=== PATIENT | male | born 1985 | race American Indian/Alaskan Native ===

== ENCOUNTER 2020-05-12 17:16 | Emergency (ER) | payer OTHER, BC ==
[2020-05-12 17:37] VITALS: BP 116/86
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
--- NOTE | 2020-05-12 18:49 | XRay Report ---
THORACOLUMBAR SPINE 2 VIEWS INDICATION / CLINICAL INFORMATION: pain. COMPARISON: None available. FINDINGS: [id number] is limited to the thoracolumbar junction. Upper thoracic and lower lumbar spi ne are not included. VERTEBRAE: No acute fracture. No significant malalignment. DISC SPACES / FACET JOINTS:No significant abnormality. PARASPINAL SOFT TISSUES:No significant abnormality. ADDITIONAL FINDINGS: None. Signer Name: Angle Brantley MD Signed: 05/12/2020 6:45 PM Workstation Name: [id number]
== END 2020-05-12 19:49 | disposition home or self-care (01) ==
LOC: ED 17:16
DX: S39.012A Strain of muscle, fascia and tendon of lower back, initial encounter (principal); Z79.1 Long term (current) use of non-steroidal anti-inflammatories (NSAID); Z79.899 Other long term (current) drug therapy; V49.49XA Driver injured in collision with other motor vehicles in traffic accident, initial encounter; Y93.89 Activity, other specified; Y92.410 Unspecified street and highway as the place of occurrence of the external cause; Y99.8 Other external cause status
CPT/HCPCS: 72080

== ENCOUNTER 2020-06-24 17:19 | Emergency (ER) | payer BC, OTHER ==
[2020-06-24] MEDS ORDERED: FLUORESCEIN 1 MG STRIP OP ONE (17:21)
[2020-06-24] MEDS ORDERED: TETRACAINE 0.5% OPHTH SOLN 4ML OU ONE (17:21)
[2020-06-24] MEDS ORDERED: TOBRAMYCIN 0.3% OPHTH SOLN 5 ML OU ONE (17:22)
--- NOTE | 2020-06-24 17:30 | Emergency Department Report ---
ED Eye Problem HPI - General Stated complaint: MED EVAL Time Seen by Provider: 06/24/20 17:29 Source: patient Mode of arrival: Ambulatory Limitations: No Limitations - History of Present Illness Initial comments: Patient is a pleasant 35-year-old that comes to the emergency room today complaining of a spot on his right conjunctiva. He states that it has been there for a couple of days, but he states when he noticed it. He denies any trauma. He denies contact lenses. He denies any recall of getting something in his eye. Patient denies any pain with vision. He denies any change in vision. Patient denies recent upper respiratory illness. chief complaint: other -: Gradual, days(s) Location: right eye Place: home If Injury: none Severity: mild Associated Symptoms: none Treatments Prior to Arrival: none - Related Data Previous Rx's Medication Instructions Recorded Last Taken Type Cyclobenzaprine [Flexeril] 10 mg PO QHS PRN #20 tablet 05/12/20 Unknown Rx Ibuprofen [Motrin 800 MG tab] 800 mg PO Q8HR PRN #30 tablet 05/12/20 Unknown Rx Allergies Allergy/AdvReac Type Severity Reaction Status Date / Time No Known Allergies Allergy Unverified 05/12/20 17:34 ED Review of Systems ROS: Stated complaint: MED EVAL Other details as noted in HPI Comment: All other systems reviewed and negative ED Past Medical Hx - Past Medical History Previous Medical History?: No - Surgical History Past Surgical History?: No - Family History Family history: no significant - Social History Smoking Status: Never Smoker Substance Use Type: Alcohol - Medications Home Medications: Home Medications Medication Instructions Recorded Confirmed Last Taken Type Cyclobenzaprine [Flexeril] 10 mg PO QHS PRN #20 tablet 05/12/20 Unknown Rx Ibuprofen [Motrin 800 MG tab] 800 mg PO Q8HR PRN #30 tablet 05/12/20 Unknown Rx ED Physical Exam - General Limitations: No Limitations General appearance: alert, in no apparent distress - Head Head exam: Present: atraumatic, normocephalic - Eye Eye exam: Present: normal appearance - Expanded Eye Exam Expanded Eyelids: Normal Inspection: Right Pupils: Regular, Round: Bilateral, Reactive: Bilateral Sclera/Conjunctival: Normal Inspection: Left Visual acuity (R) = 20/: 20 Visual acuity (L) = 20/: 20 - ENT ENT exam: Present: normal exam, mucous membranes moist - Neck Neck exam: Present: normal inspection - Respiratory Respiratory exam: Absent: normal lung sounds bilaterally, respiratory distress - Cardiovascular Cardiovascular Exam: Present: regular rate, normal rhythm. Absent: systolic murmur, diastolic murmur, rubs, gallop - GI/Abdominal GI/Abdominal exam: Present: soft, normal bowel sounds - Rectal Rectal exam: Present: deferred - Extremities Exam Extremities exam: Present: normal inspection - Back Exam Back exam: Present: normal inspection - Neurological Exam Neurological exam: Present: alert, oriented X3 - Psychiatric Psychiatric exam: Present: normal affect, normal mood - Skin Skin exam: Present: warm, dry, intact, normal color. Absent: rash ED Course Vital Signs 06/24/20 17:45 Temperature 97.4 F L Pulse Rate 79 Respiratory 16 Rate Blood Pressure 120/69 O2 Sat by Pulse 100 Oximetry ED Medical Decision Making - Medical Decision Making Eye was numbed with tetracaine. There was no uptake of fluorescein of the right eye. EOMs are intact. Pupils equal round react to light. At approximately 11:00 on the right conjunctiva the patient has a translucent elevation of the conjunctiva. Patient denies any history of hyperlipidemia. He has been using saline drops to his eye. I have discharged him with the tobramycin drops that he will use every 8 hours for 5 days. He is also been given a referral to Dr. Yuan for further evaluation. The globe is intact and there is no visual threat. Patient being discharged home Ortho and PCP referrals. Patient verbalizes understanding of discharge plan of care. Vital Signs 06/24/20 17:45 Temperature 97.4 F L Pulse Rate 79 Respiratory 16 Rate Blood Pressure 120/69 O2 Sat by Pulse 100 Oximetry - Differential Diagnosis ro fb/abrasion Critical care attestation.: If time is entered above; I have spent that time in minutes in the direct care of this critically ill patient, excluding procedure time. ED Disposition Clinical Impression: Eye abnormalities Disposition: - TO HOME OR SELFCARE Is pt being admited?: No Does the pt Need Aspirin: No Condition: Stable Referrals: JARAD NOVA MD [Staff Physician] - 3-5 Days MARK GERMAN MD [Staff Physician] - 3-5 Days Time of Disposition: 17:35
[2020-06-24 17:47] VITALS: BP 120/69
== END 2020-06-24 17:55 | disposition home or self-care (01) ==
LOC: ED 17:19
DX: H57.11 Ocular pain, right eye (principal); Z79.899 Other long term (current) drug therapy
CPT/HCPCS: 99282